=== PATIENT | male | born 1965 | race Caucasian/White ===

== ENCOUNTER → 2020-06-21 | Outpatient (CLI) | payer OTHER | LOC: M.RAD 14:28 | PROVIDERS: ATTEND Orthopaedic Surgery | DX: M21.072 Valgus deformity, not elsewhere classified, left ankle (principal); M21.071 Valgus deformity, not elsewhere classified, right ankle; M19.071 Primary osteoarthritis, right ankle and foot; M19.072 Primary osteoarthritis, left ankle and foot ==